=== PATIENT | male | born 1965 | race African-American/Black ===

== ENCOUNTER → 2019-03-18 | Outpatient (CLI) | payer OTHER ==
[2015-08-09 07:48] VITALS: BP 142/85
[~2019-03-18] MED LIST: AMLO10TA8 PO; ATOR10TA60 PO; HYDR12.58 PO
--- NOTE | 2019-03-18 12:45 | RAD ---
Limited abdominal ultrasound 03/18/2019 INDICATION: Ventral hernia without obstruction COMPARISON STUDY: None Discussion: Sonographic evaluation of the posterior abdominal wall was performed. Patient has a history of ventral hernia and removal of an atypical lipoma. Focal sonographic evaluation of the posterior abdominal wall was performed. There is an abnormal predominantly isoechoic area within the subcutaneous fat in the posterior abdominal wall, left of midline. Ultrasound evaluation is limited. Definitive internal blood flow is not identified. This could represent an lipoma, other mass, or herniation of retroperitoneal fat. Consider CT evaluation. The area in question is irregular in shape measures approximately 5.5 x 7.0 x 1.5 cm by technologist report. IMPRESSION: Isoechoic irregular mass in the subcutaneous tissues of the left inferior abdomen. Limited ultrasound findings are nonspecific. Findings could represent a lipoma, other mass, or herniation of retroperitoneal fat. CT imaging recommended. Electronically signed by: Hari Espinosa MD (03/18/2019 12:42 PM) [id number]
--- NOTE | 2019-03-18 15:20 | RAD ---
Examination: EXT NON VASC LEFT History: Lump at the left lower back Comparison/Correlation: None Findings: Ultrasound imaging of the left lower back was performed at the site of the reported lump. There is a 5.5 cm with subcentimeter 1.5 cm total well-circumscribed intermediate echogenicity structure with septations. This structure has echogenicity as expected of a lipoma. No significant flow associated with it. No associated fluid. No suspicious solid component. Impression: Left lower back lipoma. No suspicious features on the basis of ultrasound imaging. Electronically signed by: Mayco Bowen MD (03/18/2019 3:17 PM) [facility]
== END | disposition home or self-care (01) ==
LOC: US 06:40
PROVIDERS: ATTEND Internal Medicine
DX: D17.9 Benign lipomatous neoplasm, unspecified (principal); K43.9 Ventral hernia without obstruction or gangrene; R19.09 Other intra-abdominal and pelvic swelling, mass and lump
CPT/HCPCS: 76705; 76881